=== PATIENT | female | born 1975 | race Caucasian/White ===

== ENCOUNTER 2018-11-03 19:26 | Emergency (ER) | payer MEDICAID, OTHER ==
[2018-11-03 19:55] LABS: ADD MAN DIFF? NO
[2018-11-03 19:57] LABS: WHITE BLOOD COUNT 6.8 10^3/ul (4.8-10.8)
[2018-11-03 19:57] LABS: BASOPHILS % 0.4 % (0.0-2.0); EOSINOPHILS # 0.1 10^3/ul (0.0-0.5); EOSINOPHILS % 1.6 % (0.0-7.0); HEMATOCRIT 37.4 % (37.0-47.0); HEMOGLOBIN 12.5 g/dl (12.0-16.0); LYMPHOCYTES # 2.5 10^3/ul (0.8-2.9); LYMPHOCYTES % 37.5 % (15.0-51.0); MEAN CORPUSCULAR HEMOGLOBIN 29.1 pg (29.0-33.0); MEAN CORPUSCULAR HGB CONC 33.4 g/dl (32.0-37.0); MEAN PLATELET VOLUME 10.4 fl (7.4-10.4); MONOCYTE # 0.6 10^3/ul (0.3-0.9); MONOCYTES % 8.1 % (0.0-11.0); NEUTROPHIL # 3.5 10^3/ul (1.6-7.5); NEUTROPHILS % 52.1 % (39.0-77.0); PLATELET COUNT 218 10^3/UL (140-415); RED CELL DISTRIBUTION WIDTH 13.2 % (11.5-14.5)
[2018-11-03] MEDS: ONDANSETRON 4 MG INJ IV (19:58)
[2018-11-03] MEDS: LORAZEPAM 2 MG INJ IV (19:58)
[2018-11-03] MEDS: SOD CHLORIDE 0.9% 1,000 ML IV (19:59)
[2018-11-03] MEDS: morphine 2 MG INJ IV (19:59)
[2018-11-03 20:23] LABS: ANION GAP 14 (5-13); BLOOD UREA NITROGEN 18 mg/dl (7-20); CALCIUM 11.2 mg/dl (8.4-10.2); CARBON DIOXIDE 19 mmol/L (21-31); CHLORIDE 109 mmol/L (97-110); CREATININE 0.72 mg/dl (0.44-1.00); Estimated GFR > 60 mL/min (>60); GLUCOSE 94 mg/dl (70-220); POTASSIUM 3.7 mmol/L (3.5-5.1); SODIUM 142 mmol/L (135-144)
[2018-11-03] MEDS: SOD CHLORIDE 0.9% 100 ML (20:48)
[2018-11-03] MEDS: IOHEXOL 300MG/ML 150 ML BTL (20:48)
[2018-11-03 20:57] LABS: INR 0.95; PROTIME 12.8 Sec (11.9-14.9)
[2018-11-03 20:58] LABS: PARTIAL THROMBOPLASTIN TIME 30.8 Sec (23.0-35.0)
[2018-11-03] MEDS: DIPHTH/TET/ACEL PERTUSS (ADULT) 0.5 ML VIAL IM* (21:40)
== END 2018-11-03 22:10 | disposition home or self-care (01) ==
LOC: E/R 19:26
DX: S20.219A Contusion of unspecified front wall of thorax, initial encounter (principal); S80.11XA Contusion of right lower leg, initial encounter; S90.02XA Contusion of left ankle, initial encounter; R07.9 Chest pain, unspecified; V49.40XA Driver injured in collision with unspecified motor vehicles in traffic accident, initial encounter
CPT/HCPCS: 71260; 73590; 73610-RT; 74177; 80048; 84703; 85025; 85610; 85730; 90471; 90715; 93005; 96374; 96375; 99285-25